=== PATIENT | female | born 1975 | race Caucasian/White ===

== ENCOUNTER 2018-05-06 21:54 | Observation (INO) | payer OTHER ==
[2018-05-06] MEDS ORDERED: SODIUM CHLORIDE 0.9% 500 ML 500 ML IV STA (22:24)
[2018-05-06 23:28] LABS: Basophils # (A) 0.1 k/uL (0-0.2); Basophils % (A) 1 %; Eosinophils # (A) 0.1 k/uL (0-0.7); Eosinophils % (A) 2 %; HCT 40.6 % (34.0-46.0); HGB 13.6 gm/dL (11.4-16.0); Lymphocytes % (A) 46 %; MCH 30.1 pg (25.0-35.0); MCHC 33.4 g/dL (31.0-37.0); MCV 90.2 fL (80.0-100.0); Mean Platelet Volume 7.8; Monocytes # (A) 0.5 k/uL (0-1.0); Monocytes % (A) 5 %; Neutrophils # (A) 3.9 k/uL (1.3-7.7); Neutrophils % (A) 45 %; Platelet Count 254 k/uL (150-450); RDW 13.2 % (11.5-15.5); WBC 8.7 k/uL (3.8-10.6)
[2018-05-06 23:44] LABS: Partial Thromboplastin Time 22.5 sec (22.0-30.0); Prothrombin Time 10.3 sec (9.0-12.0)
--- NOTE | 2018-05-06 23:50 | ED ---
Chest Pain HPI - General Source: patient, EMS, RN notes reviewed Mode of arrival: EMS Limitations: no limitations <Livan Austin - Last Filed: 05/07/18 01:07> <Rina Lacey - Last Filed: 05/11/18 02:13> - General Chief Complaint: Chest Pain Stated Complaint: chest pain Time Seen by Provider: 05/06/18 22:17 - History of Present Illness Initial Comments: 43-year-old female presented emergency from chief complaint chest pain. Patient states started hour to prior arrival. Patient states she has no cardiac history she does have a history of PE. She states that she is but that her states she has not taken any since January because she ran out. Patient states she recently moved to this area. She does feel slightly short of breath. She states pain is centralized rates her left shoulder and neck region. Denies any back pain. Patient denies any nausea vomiting diarrhea constipation no fevers chills no recent URI symptoms. She states she does have a history of hyperlipidemia and hypertension though she was removed off her medication several years ago. Patient states she is a diabetic. (Livan Austin) - Related Data Home Medications Medication Instructions Recorded Confirmed DULoxetine HCL [Cymbalta] 60 mg PO DAILY 05/07/18 05/07/18 buPROPion [Wellbutrin] 100 mg PO BID 05/07/18 05/07/18 hydrOXYzine HCL [Atarax] 50 mg PO TID 05/07/18 05/07/18 traZODone HCL 150 mg PO HS 05/07/18 05/07/18 Previous Rx's Medication Instructions Recorded Gabapentin 800 mg PO TID #3 tablet 05/09/18 Pantoprazole [Protonix] 40 mg PO SRAVAN-BRToanFST #30 tablet. 05/09/18 Allergies Allergy/AdvReac Type Severity Reaction Status Date / Time No Known Allergies Allergy Unverified 05/06/18 23:06 Review of Systems ROS Other: All systems not noted in ROS Statement are negative. <Livan Austin - Last Filed: 05/07/18 01:07> ROS Other: All systems not noted in ROS Statement are negative. <Rina Lacey - Last Filed: 05/11/18 02:13> ROS Statement: Those systems with pertinent positive or pertinent negative responses have been documented in the HPI. EKG Findings - EKG Comments: EKG Findings:: EKG performed at 22:30 normal sinus rhythm with a rate of 76 IA 174 QRS 94 QT/QTC 384/432 <Lvian Austin - Last Filed: 05/07/18 01:07> Past Medical History Past Medical History: Diabetes Mellitus, Deep Vein Thrombosis (DVT) Additional Past Medical History / Comment(s): Hep C, hx of IV drug use. Date of last positivie culture/infection: 2014 MDRO Source:: MRSA Past Surgical History: Cholecystectomy Additional Past Surgical History / Comment(s): femal exploratory surgery. Past Psychological History: Depression Smoking Status: Current every day smoker Past Alcohol Use History: Occasional Past Drug Use History: Marijuana <Livan Austin - Last Filed: 05/07/18 01:07> - Past Family History Father Family Medical History: Diabetes Mellitus Mother History Unknown: Yes <AbhijitRina P - Last Filed: 05/11/18 02:13> General Exam Limitations: no limitations General appearance: alert, in no apparent distress Head exam: Present: atraumatic, normocephalic, normal inspection ENT exam: Present: normal oropharynx Neck exam: Present: normal inspection, full ROM. Absent: tenderness, meningismus, lymphadenopathy Respiratory exam: Present: normal lung sounds bilaterally. Absent: respiratory distress, wheezes, rales, rhonchi, stridor Cardiovascular Exam: Present: regular rate, normal rhythm, normal heart sounds. Absent: systolic murmur, diastolic murmur, rubs, gallop, clicks GI/Abdominal exam: Present: soft, normal bowel sounds. Absent: distended, tenderness, guarding, rebound, rigid Back exam: Absent: CVA tenderness (R), CVA tenderness (L) Skin exam: Present: warm, dry, intact, normal color. Absent: rash <Livan Austin - Last Filed: 05/07/18 01:07> Vital Signs 05/06/18 05/06/18 05/06/18 22:09 22:13 22:30 Temperature 98.5 F Pulse Rate 83 77 Respiratory 18 Rate Blood Pressure 116/74 116/74 O2 Sat by Pulse 98 100 Oximetry 05/06/18 05/06/18 05/06/18 23:00 23:22 23:30 Temperature Pulse Rate 77 68 73 Respiratory 18 Rate Blood Pressure 116/74 117/65 117/65 O2 Sat by Pulse 99 Oximetry 05/07/18 05/07/18 05/07/18 00:00 00:30 01:00 Temperature Pulse Rate 77 79 Respiratory Rate Blood Pressure 117/65 117/65 117/65 O2 Sat by Pulse 98 97 Oximetry 05/07/18 05/07/18 05/07/18 01:30 02:00 02:30 Temperature Pulse Rate 79 76 78 Respiratory Rate Blood Pressure 117/65 117/65 117/65 O2 Sat by Pulse 97 99 Oximetry 05/07/18 05/07/18 05/07/18 03:00 03:30 04:00 Temperature Pulse Rate 77 74 78 Respiratory Rate Blood Pressure 117/65 117/65 117/65 O2 Sat by Pulse 97 Oximetry 05/07/18 05/07/18 05/07/18 04:30 05:00 05:30 Temperature Pulse Rate 79 75 Respiratory Rate Blood Pressure 117/65 117/65 117/65 O2 Sat by Pulse Oximetry 05/07/18 05/07/18 05/07/18 05:58 06:00 06:30 Temperature Pulse Rate 75 75 78 Respiratory 16 Rate Blood Pressure 109/47 109/47 109/47 O2 Sat by Pulse 97 98 96 Oximetry 05/07/18 05/07/18 05/07/18 07:00 07:30 08:00 Temperature Pulse Rate 85 75 76 Respiratory Rate Blood Pressure 109/47 109/47 97/65 O2 Sat by Pulse 96 Oximetry 05/07/18 05/07/18 05/07/18 08:30 09:00 09:30 Temperature Pulse Rate 75 75 74 Respiratory Rate Blood Pressure 118/75 118/75 110/65 O2 Sat by Pulse Oximetry 05/07/18 05/07/18 05/07/18 10:00 10:30 11:00 Temperature Pulse Rate 75 79 75 Respiratory Rate Blood Pressure 110/65 101/86 101/86 O2 Sat by Pulse Oximetry 05/07/18 05/07/18 05/07/18 11:30 12:00 12:30 Temperature Pulse Rate 70 76 71 Respiratory Rate Blood Pressure 118/70 104/72 O2 Sat by Pulse 97 98 Oximetry 05/07/18 05/07/18 05/07/18 13:00 13:30 13:35 Temperature Pulse Rate 69 82 81 Respiratory 18 Rate Blood Pressure 104/72 98/71 120/82 O2 Sat by Pulse 97 99 99 Oximetry 05/07/18 05/07/18 05/07/18 14:00 14:30 15:00 Temperature Pulse Rate 71 76 74 Respiratory Rate Blood Pressure 120/82 105/70 105/70 O2 Sat by Pulse 98 97 98 Oximetry 05/07/18 05/07/18 05/07/18 15:30 15:44 16:00 Temperature Pulse Rate 87 87 77 Respiratory 16 Rate Blood Pressure 101/67 101/67 101/67 O2 Sat by Pulse 98 Oximetry 05/07/18 05/07/18 05/07/18 17:00 17:30 18:00 Temperature Pulse Rate 73 87 73 Respiratory Rate Blood Pressure 108/68 108/68 O2 Sat by Pulse 98 96 Oximetry 05/07/18 05/07/18 18:30 19:00 Temperature Pulse Rate 78 77 Respiratory Rate Blood Pressure 104/62 104/62 O2 Sat by Pulse 97 95 Oximetry Chest Pain MDM <Livan Austin - Last Filed: 05/07/18 01:07> <Rina Lacey - Last Filed: 05/11/18 02:13> - [facility] Patient had initial workup including EKG, chest x-ray and lab work CT to rule out PE. Patient has no evidence of PE. Patient be held for repeat cardiac enzymes, cardiology evaluation secondary her chest pain and risk factors. (Livan Austin) I personally saw and examined the patient. I reviewed and agree with the mid- level provider findings including all diagnostic interpretations and treatment plans as written unless otherwise stated. care was discussed with Dr. Ledesma who accepts admission with consult to cardiology. Admission orders were placed. (Rina Lacey) Disposition <Livan Austin - Last Filed: 05/07/18 01:07> <Rina Lacey - Last Filed: 05/11/18 02:13> Clinical Impression: Chest pain Disposition: ADMITTED IP TO THIS [facility] Condition: Stable
[2018-05-06 23:56] LABS: Creatine Kinase 47 U/L (30-135)
[2018-05-06 23:58] LABS: ALT 34 U/L (9-52); AST 33 U/L (14-36); Albumin 3.7 g/dL (3.5-5.0); Alkaline Phosphatase 150 U/L (38-126); Anion Gap 8 mmol/L; Blood Urea Nitrogen 20 mg/dL (7-17); Calcium 9.9 mg/dL (8.4-10.2); Carbon Dioxide 22 mmol/L (22-30); Chloride 109 mmol/L (98-107); Glucose 136 mg/dL (74-99); Magnesium 2.1 mg/dL (1.6-2.3); Potassium 4.8 mmol/L (3.5-5.1); Sodium 139 mmol/L (137-145); Total Bilirubin 0.7 mg/dL (0.2-1.3); Total Protein 7.1 g/dL (6.3-8.2)
[2018-05-07 00:09] LABS: Creatine Kinase MB <0.2 ng/mL (0.0-2.4); Troponin I <0.012 ng/mL (0.000-0.034)
--- NOTE | 2018-05-07 00:12 | CT ---
EXAMINATION TYPE: CT chest angio for PE DATE OF EXAM: 05/07/2018 COMPARISON: None HISTORY: Chest pain CT DLP: mGycm Automated exposure control for dose reduction was used. CONTRAST: CT Chest for pulmonary embolism performed with , patient injected with mL of . The contrast was Isovue 65 mL. FINDINGS: There are 3-D post processed images. The lungs are clear of infiltrate. There is minimal subsegmental atelectasis at the right lung base. There is no pleural effusion. Heart size is normal. There is no pericardial effusion. There is no mediastinal adenopathy. There are no hilar masses. Ascending aorta measures 3.6 cm. There is no evidence of dissection. There is normal contrast opacification of the pulmonary arteries. There is no filling defect. The bon y thorax appears intact. IMPRESSION: Negative CT angiogram of the chest. No evidence of pulmonary embolism.
--- NOTE | 2018-05-07 00:14 | XR ---
EXAMINATION TYPE: XR chest 2V DATE OF EXAM: 05/07/2018 COMPARISON: NONE HISTORY: Chest pain TECHNIQUE: Frontal and lateral views of the chest are obtained. FINDINGS: Heart and mediastinum are normal. Lungs are clear. Diaphragm is normal. Bony thorax appear s normal. IMPRESSION: Normal chest
[2018-05-07] MEDS ORDERED: HEPARIN SODIUM,PORCINE 5,000 UNIT/ML 1 ML VIAL IV ONE (01:08)
[2018-05-07] MEDS: HEPARIN SOD,PORK IN 0.45% NACL 25,000 UNIT in 0.45% NACL 1 250ML.BAG IV SCH ×2 (01:49→21:16)
[2018-05-07] MEDS ORDERED: LORazepam 2 MG/ML INJ IV STA (03:19)
[2018-05-07 03:34] LABS: Mean Platelet Volume 7.4; Platelet Count 225 k/uL (150-450)
[2018-05-07 04:19] LABS: Creatine Kinase 36 U/L (30-135)
[2018-05-07 04:33] LABS: Creatine Kinase MB <0.2 ng/mL (0.0-2.4); Troponin I <0.012 ng/mL (0.000-0.034)
[2018-05-07 09:31] LABS: Creatine Kinase 31 U/L (30-135)
[2018-05-07 09:42] LABS: Creatine Kinase MB <0.2 ng/mL (0.0-2.4); Troponin I <0.012 ng/mL (0.000-0.034)
[2018-05-07] MEDS ORDERED: HEPARIN SODIUM,PORCINE 5,000 UNIT/ML 1 ML VIAL IV PRN (19:36)
[2018-05-08] MEDS ORDERED: ACETAMINOPHEN TAB 500 MG TAB PO STA (01:57)
[2018-05-08] MEDS: NITROGLYCERIN SL TABS 0.4 MG TAB SUBLINGUAL PRN ×3 (02:03→02:15)
[2018-05-08 03:58] LABS: Mean Platelet Volume 7.3; Platelet Count 226 k/uL (150-450)
[2018-05-08 04:18] LABS: Cholesterol 164 mg/dL (<200); HDL Cholesterol 44 mg/dL (40-60); LDL Cholesterol,Calculated 90 mg/dL (0-99); Triglycerides 149 mg/dL (<150)
[2018-05-08] MEDS: ASPIRIN 325 MG TAB PO SCH (08:26)
--- NOTE | 2018-05-08 10:44 | P.HPIM ---
History of Present Illness H&P Date: 05/07/18 Chief Complaint: Chest pain Patient is a 43-year-old female with a known history of PE diagnosed in November 2017 and currently off anticoagulation, diabetes type 2 not taking medications, depression, anxiety, hepatitis C and history of IVDU came to the hospital with the complaints of chest pain. Chest pain is mainly in the left retrosternal area. Constant dull squeezing type pain. No associated nausea or vomiting. No radiation to the arm back or to neck. Associated with slight shortness of breath and dizziness. Patient felt clammy and right. Patient does have history of panic attacks but she felt different than that. Came to the hospital for evaluation. Patient was diagnosed with PE in November 2017 and was on anticoagulation.She states that she is but that her states she has not taken any since January because she ran out. Patient states she recently moved to this area. Denied any fever or chills. No cough or sputum production. No recent illnesses or sick contacts. Patient otherwise continues to smoke and uses marijuana. Last use was on Monday. Chest x-ray showed no acute cardiopulmonary process EKG showed normal sinus rhythm CT angiogram showed no evidence of pulmonary embolism troponin 2 negative Review of Systems My review of systems No fever no chills. No weakness and malaise Patient does have chest pain as well as with shortness of breath. No leg swelling. She did have palpitations otherwise Abdominal: No nausea vomiting or abdominal pain no diarrhea Respiratory. No cough or sputum production. Patient does have shortness of breath Muscular skeletal. No joint swelling or deformity Endocrine. No heat or cold intolerance. No weight loss. No constipation or diarrhea Skin no rash or skin lesions Psychiatric denied any suicidal ideation. Anxious All other review of systems negative except the above Past Medical History Past Medical History: Diabetes Mellitus, Deep Vein Thrombosis (DVT) Additional Past Medical History / Comment(s): Hep C, hx of IV drug use. Date of last positivie culture/infection: 2014 MDRO Source:: MRSA Past Surgical History: Cholecystectomy Additional Past Surgical History / Comment(s): femal exploratory surgery. Past Psychological History: Depression Smoking Status: Current every day smoker Past Alcohol Use History: Occasional Past Drug Use History: Marijuana - Past Family History Father Family Medical History: Diabetes Mellitus Mother History Unknown: Yes Medications and Allergies Home Medications Medication Instructions Recorded Confirmed Type DULoxetine HCL [Cymbalta] 60 mg PO DAILY 05/07/18 05/07/18 History Gabapentin 800 mg PO TID 05/07/18 05/07/18 History buPROPion [Wellbutrin] 100 mg PO BID 05/07/18 05/07/18 History hydrOXYzine HCL [Atarax] 50 mg PO TID 05/07/18 05/07/18 History traZODone HCL 150 mg PO HS 05/07/18 05/07/18 History Allergies Allergy/AdvReac Type Severity Reaction Status Date / Time No Known Allergies Allergy Unverified 05/06/18 23:06 Physical Exam Vitals: Vital Signs Temp Pulse Resp BP Pulse Ox 05/07/18 05:58 75 16 109/47 97 05/06/18 23:22 68 18 117/65 99 05/06/18 22:13 98.5 F 83 18 116/74 100 Intake and Output 05/06/18 05/07/18 05/07/18 22:59 06:59 14:59 Intake Total 86.833 Balance 86.833 Intake: Intake, IV Titration 86.833 Amount Heparin Sod,Pork in 0.45% 86.833 NaCl 25,000 unit In 0.45 % NaCl 1 250ml.bag @ 10 mls/hr IV .Q24H [facility] Rx#: [id number] Other: Weight 102.058 kg Limitations: no limitations General appearance: alert, in no apparent distress Head exam: Present: atraumatic, normocephalic, normal inspection ENT exam: Present: normal oropharynx Neck exam: Present: normal inspection, full ROM. Absent: tenderness, meningismus, lymphadenopathy Respiratory exam: Present: normal lung sounds bilaterally. Absent: respiratory distress, wheezes, rales, rhonchi, stridor Cardiovascular Exam: Present: regular rate, normal rhythm, normal heart sounds. Absent: systolic murmur, diastolic murmur, rubs, gallop, clicks GI/Abdominal exam: Present: soft, normal bowel sounds. Absent: distended, tenderness, guarding, rebound, rigid Back exam: Absent: CVA tenderness (R), CVA tenderness (L) Skin exam: Present: warm, dry, intact, normal color. Absent: rash Results CBC & Chem 7: 05/08/18 03:29 05/06/18 22:15 Labs: Abnormal Lab Results - Last 24 Hours (Table) 05/06/ Range/Units 22:15 Chloride 109 H (98-107) mmol/L BUN 20 H (7-17) mg/dL Glucose 136 H (74-99) mg/dL Alkaline Phosphatase 150 H (38-126) U/L Assessment and Plan Assessment: Chest pain/angina History of pulmonary embolism in November 2017, patient was . Not on anti- Coblation since January. CTA negative for any pulmonary embolism Marijuana use Polysubstance use and IVDU history Hepatitis C Diabetes type 2 not on medications Morbid BMI 35.2 Anxiety/depression DVT prophylaxis Plan: Patient will be continued on telemetry monitoring. Serial EKG and troponins. Patient was started on heparin drip. Continue with the home medications and cardiology was consulted. GI prophylaxis. Follow up closely and further recommendations based on the clinical course. Smoking cessation marijuana use has been counseled extensively. Time with Patient: Greater than 30
[2018-05-08] MEDS: PANTOPRAZOLE 40 MG TABLET PO SCH (11:03)
[2018-05-08] MEDS ORDERED: DOBUTamine DRIP for NUC MED 500 MG in DEXTROSE/WATER 1 250ML.BAG IV ONE (12:49)
--- NOTE | 2018-05-08 12:49 | P.CRDCN ---
History of Present Illness Consult reason: chest pain History of present illness: This is Dr. Vazquez dictating a consult on this patient The patient was interviewed and examined by me IMPRESSION / ASSESSMENT: Atypical central chest discomfort without any abnormal Dat enzymes normal ECG Diet-controlled diabetes, obesity past history of hypertension but her blood pressure is well controlled PLAN: Dobutamine stress echo tomorrow HPI patient presents of chest discomfort, that is central in the chest radiates to her neck and left shoulder no prior cardiac history, history of pulmonary medicine History of diabetes, history of dyslipidemia and hypertension but not on medications She is Not taking any home medications ROS: No fever chills or rigors, no cough, phlegm or expectoration, no nausea, vomiting or diarrhea, no hematuria, dysuria, no musculoskeletal complaints, no strokes or seizures, no skin lesions. EXAMINATION: Normal heart sounds normal S1 normal S2 Normal breath sounds no rhonchi no crackles Abdomen soft nontender Extremities are warm no edema Blood pressure is normal heart rates are normal REVIEW OF LABS, ECG & MEDICAL DATA Sinus rhythm 76 beats a minute normal [place] narrow QRS normal ST segments Chest CT angiography: No evidence for pulmonary embolus Normal hemoglobin Normal sodium and potassium, BUN 20 creatinine 0.79 Normal troponins 3 LDL 92 to 05/08/1961 triglycerides 149 HDL 44 Past Medical History Past Medical History: Diabetes Mellitus, Pulmonary Embolus (PE) Additional Past Medical History / Comment(s): 05-07-18 pt would like both the flu and pne vaccine beofre discharge. hep c, hx of IV drug use(pt stated in process of trying to get tx for it). depression. diet controlled dm. pt stated in past tx for bp and chil none now. History of Any Multi-Drug Resistant Organisms: MRSA Date of last positivie culture/infection: 2014 MDRO Source:: blood Past Surgical History: Cholecystectomy Additional Past Surgical History / Comment(s): femal exploratory surgery. Past Anesthesia/Blood Transfusion Reactions: No Reported Reaction Smoking Status: Current every day smoker - Past Family History Father Family Medical History: Diabetes Mellitus Mother History Unknown: Yes Medications and Allergies Home Medications Medication Instructions Recorded Confirmed Type DULoxetine HCL [Cymbalta] 60 mg PO DAILY 05/07/18 05/07/18 History RX: Gabapentin 800 mg PO TID 05/07/18 05/07/18 History RX: traZODone HCL 150 mg PO HS 05/07/18 05/07/18 History buPROPion [Wellbutrin] 100 mg PO BID 05/07/18 05/07/18 History hydrOXYzine HCL [Atarax] 50 mg PO TID 05/07/18 05/07/18 History Allergies Allergy/AdvReac Type Severity Reaction Status Date / Time No Known Allergies Allergy Unverified 05/06/18 23:06 Physical Exam Vitals: Vital Signs Temp Pulse Pulse Pulse Resp BP BP 05/08/18 04:02 98 F 79 18 109/66 05/08/18 04:00 18 05/08/18 02:20 91 18 113/64 05/08/18 02:13 90 18 111/57 05/08/18 02:07 88 18 110/61 05/08/18 02:03 77 17 108/64 05/08/18 00:00 98.3 F 79 18 102/65 05/07/18 21:17 05/07/18 19:47 16 05/07/18 19:30 98.1 F 79 18 117/79 05/07/18 19:15 98.5 F 77 16 104/62 05/07/18 19:00 77 104/62 05/07/18 18:30 78 104/62 05/07/18 18:00 73 108/68 05/07/18 17:30 87 108/68 05/07/18 17:00 73 05/07/18 16:00 77 101/67 05/07/18 15:44 87 16 101/67 05/07/18 15:30 87 101/67 05/07/18 15:00 74 105/70 05/07/18 14:30 76 105/70 05/07/18 14:00 71 120/82 05/07/18 13:35 81 18 120/82 05/07/18 13:30 82 98/71 05/07/18 13:00 69 104/72 05/07/18 12:30 71 104/72 05/07/18 12:00 76 118/70 05/07/18 11:30 70 05/07/18 11:00 75 101/86 05/07/18 10:30 79 101/86 05/07/18 10:00 75 110/65 05/07/18 09:30 74 110/65 05/07/18 09:00 75 118/75 05/07/18 08:30 75 118/75 Pulse Ox 05/08/18 04:02 98 05/08/18 04:00 05/08/18 02:20 97 05/08/18 02:13 98 05/08/18 02:07 97 05/08/18 02:03 97 05/08/18 00:00 99 05/07/18 21:17 99 05/07/18 19:47 05/07/18 19:30 98 05/07/18 19:15 95 05/07/18 19:00 95 05/07/18 18:30 97 05/07/18 18:00 96 05/07/18 17:30 05/07/18 17:00 98 05/07/18 16:00 98 05/07/18 15:44 05/07/18 15:30 05/07/18 15:00 98 05/07/18 14:30 97 05/07/18 14:00 98 05/07/18 13:35 99 05/07/18 13:30 99 05/07/18 13:00 97 05/07/18 12:30 98 05/07/18 12:00 97 05/07/18 11:30 05/07/18 11:00 05/07/18 10:30 05/07/18 10:00 05/07/18 09:30 05/07/18 09:00 05/07/18 08:30 Intake and Output 05/07/18 05/08/18 05/08/18 22:59 06:59 14:59 Intake Total 179.613 89.679 Balance 179.613 89.679 Intake: IV 39 Heparin Sod,Pork in 0.45% 39 NaCl 25,000 unit In 0.45 % NaCl 1 250ml.bag @ 10 mls/hr IV .Q24H [facility] Rx#: [id number] Intake, IV Titration 140.613 89.679 Amount Heparin Sod,Pork in 0.45% 140.613 89.679 NaCl 25,000 unit In 0.45 % NaCl 1 250ml.bag @ 10 mls/hr IV .Q24H [facility] Rx#: [id number] Other: Voiding Method Toilet Toilet # Voids 1 2 Results 05/08/18 03:29 12/30/18 22:15 Cardiac Enzymes 05/07/18 Range/Units 08:36 CK-MB (CK-2) <0.2 (0.0-2.4) ng/mL Troponin I <0.012 (0.000-0.034) ng/mL Coagulation 05/07/18 05/07/18 05/08/18 Range/Units 08:36 20:15 03:29 APTT 28.3 35.1 H 85.1 H (22.0-30.0) sec Lipids 05/08/18 Range/Units 03:29 Triglycerides 149 (<150) mg/dL Cholesterol 164 (<200) mg/dL HDL Cholesterol 44 (40-60) mg/dL CBC 05/08/18 Range/Units 03:29 Plt Count 226 (150-450) k/uL Current Medications Generic Name Dose Route Start Last Admin Trade Name Freq PRN Reason Stop Dose Admin Aspirin 325 mg 05/08/18 09:00 Aspirin PO DAILY [facility] Heparin Sodium (Porcine) 0 unit 05/07/18 19:36 05/07/18 21:16 Heparin IV 4,000 unit PER PROTOCOL PRN Administration Low PTT Protocol Heparin Sodium/Sodium Chloride 250 mls @ 10 mls/hr 05/07/18 01:15 05/08/18 04 :08 25,000 unit/ Sodium Chloride IV 10.8 units/kg/hr .Q24H [facility] 11.02 mls/hr Titration Protocol Nitroglycerin 0.4 mg 05/07/18 01:08 05/08/18 02:15 Nitrostat SUBLINGUAL 0.4 mg Q5M PRN Administration Chest Pain Intake and Output 05/07/18 05/08/18 05/08/18 22:59 06:59 14:59 Intake Total 179.613 89.679 Balance 179.613 89.679 Intake: IV 39 Heparin Sod,Pork in 0.45% 39 NaCl 25,000 unit In 0.45 % NaCl 1 250ml.bag @ 10 mls/hr IV .Q24H [facility] Rx#: [id number] Intake, IV Titration 140.613 89.679 Amount Heparin Sod,Pork in 0.45% 140.613 89.679 NaCl 25,000 unit In 0.45 % NaCl 1 250ml.bag @ 10 mls/hr IV .Q24H [facility] Rx#: [id number] Other: Voiding Method Toilet Toilet # Voids 1 2 05/08/18 03:29 05/06/18 22:15
[2018-05-08] MEDS: GABAPENTIN 400 MG CAP PO SCH ×2 (17:48→20:32)
[2018-05-08] MEDS ORDERED: ACETAMINOPHEN TAB 325 MG TAB PO PRN (20:28)
[2018-05-08] MEDS ORDERED: traZODone HCL 50 MG TAB PO SCH (21:00)
--- NOTE | 2018-05-09 00:27 | P.PN ---
Subjective Progress Note Date: 05/08/18 Principal diagnosis: Chest pain Patient is a 43-year-old female with a known history of PE diagnosed in November 2017 and currently off anticoagulation, diabetes type 2 not taking medications, depression, anxiety, hepatitis C and history of IVDU came to the hospital with the complaints of chest pain. Chest pain is mainly in the left retrosternal area. Constant dull squeezing type pain. No associated nausea or vomiting. No radiation to the arm back or to neck. Associated with slight shortness of breath and dizziness. Patient felt clammy and right. Patient does have history of panic attacks but she felt different than that. Came to the hospital for evaluation. Patient was diagnosed with PE in November 2017 and was on anticoagulation. she has not taken any since January because she ran out. Patient states she recently moved to this area. Denied any fever or chills. No cough or sputum production. No recent illnesses or sick contacts. Patient otherwise continues to smoke and uses marijuana. Last use was on Monday. Chest x-ray showed no acute cardiopulmonary process EKG showed normal sinus rhythm CT angiogram showed no evidence of pulmonary embolism troponin 2 negative 05/08/2018 Patient denied any complains of chest pain or shortness of breath today. No nausea vomiting or abdominal pain. Serial troponins negative. Patient was seen by cardiology and dobutamine stress echo was ordered for tomorrow. LDL 90 Current medications reviewed Objective - Vital Signs Vital signs: Vital Signs Temp 97.7 F 05/08/18 20:00 Pulse 79 05/08/18 20:00 Resp 16 05/08/18 20:00 BP 124/83 05/08/18 20:00 Pulse Ox 100 05/08/18 20:00 Intake & Output 05/08/18 05/08/18 05/09/18 06:59 18:59 06:59 Intake Total 269.292 74.201 Balance 269.292 74.201 Intake: IV 39 Heparin Sod,Pork in 0.45% 39 NaCl 25,000 unit In 0.45 % NaCl 1 250ml.bag @ 10 mls/hr IV .Q24H [facility] Rx#: [id number] Intake, IV Titration 230.292 74.201 Amount Heparin Sod,Pork in 0.45% 230.292 74.201 NaCl 25,000 unit In 0.45 % NaCl 1 250ml.bag @ 10 mls/hr IV .Q24H [facility] Rx#: [id number] Other: Voiding Method Toilet Toilet Toilet # Voids 2 1 - Exam PHYSICAL EXAMINATION: Patient is lying in the bed comfortably, no acute distress, awake alert and oriented.. HEENT: Normocephalic. Neck is supple. Pupils reactive. Nostrils clear. Oral cavity is moist. Ears reveal no drainage. Neck reveals no JVD, carotid bruits, or thyromegaly. CHEST EXAMINATION: Trachea is central. Symmetrical expansion. Lung azar clear to auscultation and percussion. CARDIAC: Normal S1, S2 with no gallops. No murmurs ABDOMEN: Soft. Bowel sounds normal. No organomegaly. No abdominal bruits. Extremities: reveal no edema. No clubbing or cyanosis Neurologically awake, alert, oriented x3 with well-coordinated movements. No focal deficits noted Skin: No rash or skin lesions. Psychiatric: Coperative. Nonsuicidal Musculoskeletal: No joint swelling or deformity. Normal range of motion. - Labs CBC & Chem 7: 05/08/18 03:29 05/06/18 22:15 Labs: Abnormal Lab Results - Last 24 Hours (Table) 05/08/18 05/08/18 Range/Units 03:29 10:21 APTT 85.1 H 53.9 H (22.0-30.0) sec Assessment and Plan Assessment: Chest pain/angina. Ruled out ACS. Note with stress echo tomorrow History of pulmonary embolism in November 2017, patient was . Not on anti- Coblation since January. CTA negative for any pulmonary embolism Marijuana use Polysubstance use and IVDU history Hepatitis C Diabetes type 2 not on medications Morbid BMI 35.2 Anxiety/depression DVT prophylaxis Plan: Patient will be continued on telemetry monitoring. Serial EKG and troponins negative. Heparin drip has been discontinued. Cardiology has seen the patient is lying dobutamine stress echo tomorrow. GI prophylaxis. Follow up closely and further recommendations based on the clinical course. Smoking cessation marijuana use has been counseled extensively.
[2018-05-09 06:07] LABS: Mean Platelet Volume 7.8; Platelet Count 232 k/uL (150-450)
[2018-05-09 08:18] VITALS: RESP 18
[2018-05-09] MEDS ORDERED: ATROPINE SULFATE 0.1 MG/ML 10ML SYRINGE ONE (12:30)
[2018-05-09] MEDS ORDERED: METOPROLOL TARTRATE 5 MG/5 ML VIAL IVP ONE (12:30)
[2018-05-09] MEDS: PANTOPRAZOLE 40 MG TABLET PO SCH (13:21)
[2018-05-09] MEDS: ASPIRIN 325 MG TAB PO SCH (13:21)
[2018-05-09] MEDS: GABAPENTIN 400 MG CAP PO SCH ×2 (13:21→13:25)
--- NOTE | 2018-05-09 14:21 | ECHOS ---
STRESS ECHOCARDIOGRAM INDICATIONS: Chest pain. MEDICATIONS: Trazodone, Bupropion, gabapentin, hydroxyzine HCL, Duloxetine HCL. BASELINE HEART RATE: 71 BASELINE BLOOD PRESSURE: 157/111 MAXIMUM HEART RATE: 165 MAXIMUM BLOOD PRESSURE: 212/99 85% MPHR: 152 100% MPHR: 179 MAXIMUM STAGE REACHED: 5 TOTAL EXERCISE TIME: 12:20 CLINICAL INFORMATION: A dobutamine stress echocardiographic study was performed and patient was given dobutamine infusion according to the standard protocol. Peak heart rate of 165 was achieved. Maximum blood pressure of 212/99 mmHg was noted. Resting EKG shows normal sinus rhythm with normal FL interval and QRS duration and normal ST-T waves. No ST- segment depression suggestive of ischemia is noted. The baseline echocardiographic images reveals normal left ventricular chamber size with normal left ventricular systolic function. At the peak dose of dobutamine infusion, normal increase in the wall thickness and contractility is noted. FINAL IMPRESSION: 1. This dobutamine stress echocardiographic study is negative for stress-induced ischemia. 2. EKG portion of the stress test is not suggestive of ischemia. 3. No dysrhythmias were noted. MMODL / IJN: [id number] / MTDD
--- NOTE | 2018-05-09 14:54 | P.PN ---
Subjective This is a pleasant 43-year-old female admitted to the observation unit with atypical chest discomfort. Past medical history significant for depression, chronic nicotine dependence and history of IV drug use. She underwent a dobutamine stress echocardiogram today which was negative for stress -induced ischemia. Blood pressure 95/61 heart rate 88 afebrile maintaining oxygen saturation on room air. She continues to complain of intermittent chest discomfort not associated with exertion. She denies shortness of breath, palpitations, dizziness, nausea, vomiting or diaphoresis. Lipid profile, LDL 90 and HDL 44. GENERAL: Well-appearing, well-nourished and in no acute distress. NECK: Supple without JVD or thyromegaly. LUNGS: Breath sounds clear to auscultation bilaterally. Respiration equal and unlabored. No wheezes, rales or rhonchi. HEART: Regular rate and rhythm without murmurs, rubs or gallops. S1 and S2 heard. EXTREMITIES: Normal range of motion, no edema. No clubbing or cyanosis. Peripheral pulses intact. ASSESSMENT Chest pain, atypical. An acute coronary event has been ruled out with no EKG evidence of ischemia and negative cardiac enzymes. She underwent a normal stress echocardiogram today. Chronic nicotine dependence PLAN Stable from a cardiac perspective. Pain may be related to musculoskeletal strain. Smoking cessation recommended. Ongoing medical management. Nurse Practitioner note has been reviewed, I agree with a documented findings and plan of care. Patient was seen and examined. Objective - Vital Signs Vital signs: Vital Signs Temp 97.6 F 05/09/18 07:35 Pulse 80 05/09/18 07:35 Resp 18 05/09/18 07:35 BP 95/61 05/09/18 07:35 Pulse Ox 98 05/09/18 07:35 Intake & Output 05/08/18 05/09/18 05/09/18 18:59 06:59 18:59 Intake Total 74.201 236 Balance 74.201 236 Intake: Intake, IV Titration 74.201 Amount Heparin Sod,Pork in 0.45% 74.201 NaCl 25,000 unit In 0.45 % NaCl 1 250ml.bag @ 10 mls/hr IV .Q24H [facility] Rx#: [id number] Oral 236 Other: Voiding Method Toilet Toilet Toilet # Voids 1 - Labs CBC & Chem 7: 05/09/18 05:38 05/06/18 22:15
[2018-05-09 15:36] VITALS: BP 99/63; PULSE 62; TEMP 98.2
== END 2018-05-09 19:15 | disposition home or self-care (01) ==
LOC: EC 21:54 → 1SOBS 05-07 01:03
PROVIDERS: ADMIT Hospitalist; ATTEND Hospitalist
DX: I20.9 Angina pectoris, unspecified (principal); E11.9 Type 2 diabetes mellitus without complications; F12.90 Cannabis use, unspecified, uncomplicated; F17.200 Nicotine dependence, unspecified, uncomplicated; B19.20 Unspecified viral hepatitis C without hepatic coma; E78.5 Hyperlipidemia, unspecified; I10 Essential (primary) hypertension; E66.01 Morbid (severe) obesity due to excess calories; F32.9 Major depressive disorder, single episode, unspecified; F41.0 Panic disorder [episodic paroxysmal anxiety]; Z86.14 Personal history of Methicillin resistant Staphylococcus aureus infection; Z91.14 Patient's other noncompliance with medication regimen; Z86.718 Personal history of other venous thrombosis and embolism; Z79.01 Long term (current) use of anticoagulants; Z79.899 Other long term (current) drug therapy; Z86.711 Personal history of pulmonary embolism; Z68.35 Body mass index [BMI] 35.0-35.9, adult; Z90.49 Acquired absence of other specified parts of digestive tract
CPT/HCPCS: 96376; 96361; 96365; 96366; 96375; 99285; 36415; 93005; 80061; 80053; 82550 ×2; 82553 ×2; 83735; 84484 ×2; 85025; 85049 ×3; 85610; 85730 ×3; 71046; 71275; G0378 ×3; C8930; J2060; J1250; J1644 ×2; J0461; Q9950; Q9967; 93351; 96360; 96374

== ENCOUNTER 2018-06-12 23:03 | Emergency (ER) | payer OTHER ==
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
[2018-06-13 00:32] LABS: Basophils # (A) 0.1 k/uL (0-0.2); Basophils % (A) 1 %; Eosinophils # (A) 0.1 k/uL (0-0.7); Eosinophils % (A) 2 %; HCT 42.7 % (34.0-46.0); HGB 14.3 gm/dL (11.4-16.0); Lymphocytes # (A) 2.5 k/uL (1.0-4.8); Lymphocytes % (A) 38 %; MCH 29.4 pg (25.0-35.0); MCHC 33.4 g/dL (31.0-37.0); MCV 87.9 fL (80.0-100.0); Mean Platelet Volume 6.7; Monocytes # (A) 0.3 k/uL (0-1.0); Monocytes % (A) 5 %; Neutrophils # (A) 3.6 k/uL (1.3-7.7); Neutrophils % (A) 53 %; Platelet Count 217 k/uL (150-450); RBC 4.86 m/uL (3.80-5.40); RDW 13.1 % (11.5-15.5); WBC 6.7 k/uL (3.8-10.6)
[2018-06-13 00:36] LABS: ALT 61 U/L (9-52); AST 47 U/L (14-36); Albumin 4.1 g/dL (3.5-5.0); Alkaline Phosphatase 135 U/L (38-126); Anion Gap 8 mmol/L; Blood Urea Nitrogen 14 mg/dL (7-17); Calcium 9.6 mg/dL (8.4-10.2); Carbon Dioxide 25 mmol/L (22-30); Chloride 108 mmol/L (98-107); Glucose 93 mg/dL (74-99); Potassium 3.6 mmol/L (3.5-5.1); Sodium 141 mmol/L (137-145); Total Bilirubin 1.5 mg/dL (0.2-1.3); Total Protein 7.6 g/dL (6.3-8.2)
[2018-06-13] MEDS ORDERED: valACYclovir 500 MG TAB PO STA (00:48)
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
[2018-06-13 05:21] VITALS: BP 114/73; PULSE 91; RESP 18; TEMP 97.9
== END 2018-06-13 05:56 | disposition home or self-care (01) ==
LOC: EC 23:03
DX: S00.531A Contusion of lip, initial encounter (principal); T20.00XA Burn of unspecified degree of head, face, and neck, unspecified site, initial encounter; B02.9 Zoster without complications; B01.9 Varicella without complication; F17.200 Nicotine dependence, unspecified, uncomplicated; Z86.14 Personal history of Methicillin resistant Staphylococcus aureus infection; Z86.19 Personal history of other infectious and parasitic diseases; Y09 Assault by unspecified means; X08.8XXA Exposure to other specified smoke, fire and flames, initial encounter
CPT/HCPCS: 36415; 70450; 80053; 82140; 85025; 99284